=== PATIENT | female | born 1970 | race Caucasian/White ===

== ENCOUNTER → 2020-11-20 | Outpatient (CLI) | payer OTHER ==
[2020-11-21 11:14] LABS: RHEUMATOID ARTHRITIS FACTOR <10.0 IU/mL (0.0-13.9)
[2020-11-25 00:11] LABS: CCP ANTIBODIES IGG/IGA 9 units (0-19)
== END ==
LOC: LAB 10:10
PROVIDERS: Nurse Practitioner Family
DX: M25.50 Pain in unspecified joint (principal); M79.10 Myalgia, unspecified site; R76.8 Other specified abnormal immunological findings in serum; R53.83 Other fatigue; D89.9 Disorder involving the immune mechanism, unspecified
CPT/HCPCS: 36415; 81001; 82550; 82570; 82728; 83520; 84156; 85652; 86140; 86200; 86431

== ENCOUNTER → 2020-12-30 | Outpatient (CLI) | payer OTHER ==
[2021-01-01 08:14] LABS: HCV AB <0.1 (0.0-0.9)
[2021-01-01 10:14] LABS: HBSAG SCREEN Negative (Negative); HEP B CORE AB, TOT Negative (Negative)
== END ==
LOC: LAB 17:14
PROVIDERS: Internal Medicine
DX: R76.8 Other specified abnormal immunological findings in serum (principal); Z79.899 Other long term (current) drug therapy
CPT/HCPCS: 86704; 86803; 87340

== ENCOUNTER → 2021-03-31 | Outpatient (CLI) | payer OTHER ==
[2021-03-31 18:07] LABS: HEMOGLOBIN 11.5 gm/dl (12.3-15.3); RED BLOOD COUNT 4.18 M/UL (4.00-5.10); WHITE BLOOD COUNT 8.3 K/UL (4.5-11.0)
[2021-04-02 08:15] LABS: VITAMIN D, 25-HYDROXY 52.4 ng/mL (30.0-100.0)
== END ==
LOC: LAB 17:00
PROVIDERS: Internal Medicine
DX: D64.9 Anemia, unspecified (principal); M07.60 Enteropathic arthropathies, unspecified site; K50.90 Crohn's disease, unspecified, without complications; E55.9 Vitamin D deficiency, unspecified; R53.83 Other fatigue; Z79.899 Other long term (current) drug therapy
CPT/HCPCS: 36415; 80053; 82607; 82728; 82746; 83540; 83550; 83735; 84466; 85025; 85045